=== PATIENT | female | born 1985 | race African-American/Black ===

== ENCOUNTER 2017-03-12 14:43 | Emergency (ER) | payer OTHER ==
[2017-03-12] MEDS ORDERED: Prochlorperazine 10 MG/2 ML VIAL ONE (15:14)
[2017-03-12] MEDS ORDERED: diphenhydrAMINE 50 MG/ML VIAL ONE (15:14)
[2017-03-12] MEDS ORDERED: Ketorolac Tromethamine 30 MG/ML VIAL ONE (15:14)
[2017-03-12 15:19] LABS: #Basophils 0.1 thou/uL (0.0-0.2); #Eosinphils 0.1 thou/uL (0.0-0.7); #Lymphocytes 3.3 thou/uL (1.20-3.40); #Monocytes 0.6 thou/uL (0.11-0.59); #Neutrophils 3.2 thou/uL (1.40-6.50); %Basophils 1.5 % (0.0-1.0); %Eosinophils 1.5 % (0.0-10.0); %Lymphocytes 45.2 % (21.0-51.0); %Monocytes 7.9 % (0.0-10.0); Hematocrit 47.9 % (36.0-47.0); Mean Platelet Volume 10.6 fL (7.4-10.4); Red Blood Cell (RBC) Count 5.56 mill/uL (4.20-5.40); White Blood Cell (WBC) Count 7.2 thou/uL (4.8-10.8)
[2017-03-12 15:30] LABS: ALT (SGPT) 26 U/L (8-55); AST (SGOT) 20 U/L (5-34); Alkaline Phosphatase 131 U/L (40-150); Anion Gap 15 mmol/L (10-20); BUN (Urea Nitrogen) 5 mg/dL (7.0-18.7); Bilirubin, Total 0.3 mg/dL (0.2-1.2); Calc. Creatinine Clearance 0 mL/min (70-130); Calcium 9.8 mg/dL (7.8-10.44); Carbon Dioxide 22 mmol/L (22-29); Chloride 106 mmol/L (98-107); Estimated GFR-MDRD Greater than 90; Protein, Total 8.2 g/dL (6.0-8.3)
--- NOTE | 2017-03-12 15:40 | CT ---
CT BRAIN WITHOUT CONTRAST: History: Headache. Comparison: None. FINDINGS: No acute territory infarct or hemorrhage. No midline shift or mass effect. Ventricular size and extr aaxial CSF spaces are normal. Calvarium is intact. Paranasal sinuses and mastoids are clear. IMPRESSION: No acute intracranial abnormality. POS: [facility]
== END 2017-03-12 16:30 | disposition home or self-care (01) ==
LOC: SCSER 14:43
DX: G43.909 Migraine, unspecified, not intractable, without status migrainosus (principal); F41.9 Anxiety disorder, unspecified; F32.9 Major depressive disorder, single episode, unspecified; Z71.6 Tobacco abuse counseling; F17.210 Nicotine dependence, cigarettes, uncomplicated
CPT/HCPCS: 70450; 80053; 85025; 96374; 96375; 99406; J0780; J1200; J1885

== ENCOUNTER 2017-08-19 01:18 | Emergency (ER) | payer OTHER ==
[2017-08-19] MEDS ORDERED: Dexamethasone 4 MG TAB ONE (02:36)
== END 2017-08-19 02:42 | disposition home or self-care (01) ==
LOC: ERS 01:18
DX: T78.40XA Allergy, unspecified, initial encounter (principal); L29.9 Pruritus, unspecified; F17.210 Nicotine dependence, cigarettes, uncomplicated; Z79.899 Other long term (current) drug therapy; Z79.84 Long term (current) use of oral hypoglycemic drugs
CPT/HCPCS: 99283; J8540

== ENCOUNTER 2017-11-08 18:46 | Emergency (ER) | payer OTHER | END 2017-11-08 19:54 | disposition home or self-care (01) | LOC: ERS 18:46 | DX: S16.1XXA Strain of muscle, fascia and tendon at neck level, initial encounter (principal); F17.210 Nicotine dependence, cigarettes, uncomplicated; V89.2XXA Person injured in unspecified motor-vehicle accident, traffic, initial encounter | CPT/HCPCS: 99283 ==

== ENCOUNTER 2018-06-26 18:26 | Emergency (ER) | payer OTHER, SELFPAY ==
[2018-06-26] MEDS ORDERED: Ondansetron ODT 4 MG TAB ONE (19:59)
== END 2018-06-27 00:04 | disposition home or self-care (01) ==
LOC: ERS 18:26
DX: R11.0 Nausea (principal); J02.9 Acute pharyngitis, unspecified; F17.210 Nicotine dependence, cigarettes, uncomplicated
CPT/HCPCS: 87081; 87430; 87804; 99283; Q0162

== ENCOUNTER 2019-07-05 14:05 | Emergency (ER) | payer SELFPAY | END 2019-07-05 17:02 | disposition home or self-care (01) | LOC: ERS 14:05 | DX: J11.1 Influenza due to unidentified influenza virus with other respiratory manifestations (principal); F17.210 Nicotine dependence, cigarettes, uncomplicated; R73.03 Prediabetes | CPT/HCPCS: 87804; 99283 ==

== ENCOUNTER 2020-03-03 12:45 | Emergency (ER) | payer SELFPAY | END 2020-03-03 14:18 | disposition home or self-care (01) | LOC: ERS 12:45 | DX: J06.9 Acute upper respiratory infection, unspecified (principal); R73.03 Prediabetes; F41.9 Anxiety disorder, unspecified; F32.9 Major depressive disorder, single episode, unspecified; E28.2 Polycystic ovarian syndrome | CPT/HCPCS: 99283 ==

== ENCOUNTER 2020-03-18 14:21 | Emergency (ER) | payer OTHER, SELFPAY ==
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
== END 2020-03-18 15:56 | disposition home or self-care (01) ==
LOC: ERS 14:21
DX: S20.212A Contusion of left front wall of thorax, initial encounter (principal); F41.9 Anxiety disorder, unspecified; F32.9 Major depressive disorder, single episode, unspecified; Z79.899 Other long term (current) drug therapy; V89.2XXA Person injured in unspecified motor-vehicle accident, traffic, initial encounter
CPT/HCPCS: 71046

== ENCOUNTER 2021-05-13 21:56 | Emergency (ER) | payer SELFPAY ==
[2021-05-14] MEDS ORDERED: Acetaminophen 500 MG TAB ONE (00:25)
[2021-05-14] MEDS ORDERED: Ibuprofen 800 MG TAB ONE (00:25)
[2021-05-14 05:51] LABS: SARS-CoV-2 NAA Rapid Test Not Detected (NotDetected)
== END 2021-05-14 13:45 | disposition home or self-care (01) ==
LOC: ERS 21:56
DX: J01.90 Acute sinusitis, unspecified (principal); Z20.822 Contact with and (suspected) exposure to COVID-19
CPT/HCPCS: 0240U; 99284